=== PATIENT | female | born 1940 | race Caucasian/White ===

== ENCOUNTER → 2017-11-04 | Outpatient (CLI) | payer OTHER ==
[~2017-11-04] MED LIST: ALKA-SELTZER P1 EAC9 PO; ATIVAN0.5 MG PO; CALCIUM 500 +1 EAC5 PO; CAPOTEN; CARVEDILOL12.5 MG PO; CIPROFLOXACIN500 M1 PO; CLONAZEPAM 0.50.5 M1 PO; DESYREL; GABAPENTIN PO; HYDROCODON-ACE1 EAC5 PO; HYDROCODONE; KLOR-CON 1010 MEQ PO; MUCINEX D TABL1 EAC1 PO; NORVASC5 MG PO; OMEPRAZOLE40 MG PO; PHENERGAN 25 MG25 MG PO; PRILOSEC 20 MG20 MG PO; SERTRALINE HCL50 MG PO; SIMVASTATIN40 MG PO; TRAVATAN Z5 ML OP; TRAZODONE HCL50 MG PO; XALATAN2.5 ML OPHTHALMIC; ZESTORETIC 20-1 EAC3 PO; ZESTORETIC 20-1 EACH PO; ZOCOR40 MG PO; ZOLOFT50 MG PO
== END ==
LOC: M.ULTRA 11:55
DX: M25.562 Pain in left knee (principal); M79.89 Other specified soft tissue disorders

== ENCOUNTER → 2017-11-14 | Outpatient (CLI) | payer OTHER, SELFPAY | LOC: M.MRI 10:31 | DX: S83.412A Sprain of medial collateral ligament of left knee, initial encounter (principal); M25.462 Effusion, left knee; X58.XXXA Exposure to other specified factors, initial encounter; Y93.89 Activity, other specified; Y92.89 Other specified places as the place of occurrence of the external cause; Y99.8 Other external cause status ==

== ENCOUNTER → 2018-04-26 | Outpatient (CLI) | payer OTHER, SELFPAY | LOC: M.RAD 08:26 | DX: M85.89 Other specified disorders of bone density and structure, multiple sites (principal); I10 Essential (primary) hypertension; Z78.0 Asymptomatic menopausal state ==

== ENCOUNTER → 2019-07-17 | Outpatient (CLI) | payer OTHER ==
[~2019-07-17] MED LIST changes: +ALEVE220 M1 PO; +ALKA-SELTZER O1 EACH PO; +ASA81BEC PO; +CENTRUM SILVER1 EAC6 PO; +HAIR SKIN AND NAILS PO; +MAGNESIUM250 M1 PO; +TYLENOL PM EX-1 EACH PO; +VITAMIN D-3 PO; +ZINC PO; +calcium PO
== END ==
LOC: M.MRI 11:07
DX: M47.816 Spondylosis without myelopathy or radiculopathy, lumbar region (principal); M48.062 Spinal stenosis, lumbar region with neurogenic claudication; M53.85 Other specified dorsopathies, thoracolumbar region

== ENCOUNTER → 2019-07-31 | Outpatient (CLI) | payer OTHER ==
--- NOTE | 2019-08-13 13:25 | PAINCON ---
[address] [address] PAIN MANAGEMENT CONSULTATION Name: LUCRECIALELE Malaika Room: [facility]#: [id number] Admission: 07/31/19 Attend Phys: Krysta Lopez MD Discharge: Date of : 36 Report #: [id number] THIS REPORT FOR: //name// CC: Krysta Youngblood DO CHIEF COMPLAINT: Pain in the entire back, neck, hips, legs, shoulders, feet, knees. The patient has had a long history of chronic pain since dating back to 2015. Does note that about every 2-3 weeks, she becomes unsure of her gait. She has fallen. She does use a walker. She has not needed hospitalization as a result of her falls. HISTORY OF PRESENT ILLNESS: The patient is an 78-year-old female, who has fallen about a month ago. Since that time, she has had significant pain. Does have a history of rotoscoliosis. 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 The patient has had some problems with urinary tract infections and has been treated for them. She has had back surgery, This was in 1969. As a result of the surgery, a bone graft was obtained. She still has pain and discomfort in the area of the graft. ALLERGIES: No known drug allergies. CURRENT MEDICATIONS: Tylenol 500 mg, amlodipine 5 mg, aspirin 81 mg, calcium, Coreg 12.5 mg, Klonopin 0.5 mg t.i.d. p.r.n., Xalatan 0.005 eye drops, multivitamins, omega 3 fatty acids/fish oil, Prilosec 40 mg, Zoloft 50 mg, Zocor 40 mg, Ultram 50 mg, Desyrel 50 mg. PAST MEDICAL HISTORY: 1. Urinary tract infections. 2. Essential hypertension. 3. Chronic stage 3 kidney disease. The patient states she has function of one kidney. 4. Major depressive disorder with single episode, in partial remission. 5. Mixed hyperlipidemia. 6. Peripheral vascular disease. 7. Acquired absence of a kidney, lumbar stenosis with neurogenic claudication. 8. Body mass index, 30-30.9. 9. Cardiac murmur. 10. Neurogenic claudication. PAST SURGICAL HISTORY: 1. Back surgery in 1969. 2. Appendectomy. 3. Nephrectomy. 4. Right foot surgery with screws. 5. 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 REVIEW OF SYSTEMS: Weight changes, decreased appetite, headaches, eye disease, wears glasses. Glaucoma/cataracts. Chronic sinus/rhinitis. Sore throat, heart trouble, chest pain/angina, shortness of breath walking. GASTROINTESTINAL: Positive. GENITOURINARY: Frequent urination, burning, painful urination. ENDOCRINE: Excessive thirst. MUSCULOSKELETAL: Joint pain, joint stiffness, weakness of muscles and joints, back pain, difficulty walking. Lightheadedness, dizziness, depression, and insomnia. LABORATORY DATA: MRI of the lumbar spine dated 07/17/2019, L3-L4 laminectomies and bilateral facet hypertrophy. No significant central canal stenosis or neural foraminal narrowing at L4-L5. Bilateral facet hypertrophy. No significant central canal stenosis. L5-S1 bilateral facet hypertrophy. No significant central canal stenosis or neural foraminal narrowing. Impression, degenerative changes. Findings not significantly changed since prior study in 2014. PAIN CLINIC ASSESSMENT/PQRS: 1. Height 5.0. 2. Weight 145 pounds, BMI is 28.3. 3. Vital signs: Blood pressure 145/70, heart rate 66, respiratory rate 16, room air saturation 94%. 4. Temperature 98.1. 5. Pain intensity 10. 6. Fall risk. The patient has fallen in the last month with continued pain and discomfort in her hip. 7. Blood thinner. The patient is not on a blood thinning medication. 8. Hypertension. The patient is being treated for hypertension. 9. Opioids greater than 6 weeks. The patient is not on opioid medications, but using tramadol. 10. Risk assessment tool, low for opioid use. 11. Functional assessment tool. 12. Recreational drug use: The patient denies. 13. Tobacco: The patient does not smoke. 14. Alcohol: The patient denies frequent use of alcoholic beverages. PHYSICAL EXAMINATION: GENERAL: The patient is a well-developed white female. Appears her stated age. She is alert and oriented x 3. Her affect is appropriate. Speech is fluent. HEENT: Normocephalic, atraumatic. Extraocular eye muscles intact. HEART: Regular rate. EXTREMITIES: Upper extremity, the patient complains of pain in the neck as well as in her shoulders, left and right. LUNGS: Generally, [place] [address] PAIN MANAGEMENT CONSULTATION Name: LELE SINGER Room: [facility]#: [id number] Admission: 07/31/19 Attend Phys: Krysta Lopez MD Discharge: Date of : 36 Report #: [id number] ABDOMEN: Protuberant. Nontender. EXTREMITIES: Upper extremity muscle strength judged to be 4+/5 for the major muscle groups in the upper extremity. The patient with history of scoliosis, rotoscoliosis. Lower extremity, the patient complains of pain in the left anterior foot and calf. She is walking with a rolling walker. Uses her hands to go from a sitting to a standing position. IMPRESSION: 1. Hip, low back, left leg and foot pain after a fall. 2. History of lumbar back surgery. 3. Total hip arthroplasty, increased pain after a fall. RECOMMENDATION: The patient has pain and discomfort, which she describes in the L4-L5 dermatomal distribution down into her left leg and involving her foot. Possibility of an epidural steroid injection has been discussed. The patient will return to the Pain Clinic, at which time she may consider going forward with an epidural steroid injection. The patient is on Naprosyn. We have reminded her that given she has problems with her kidney, this medication probably should not be used on a regular basis. Possibility of a Medrol Dosepak oral is being considered as well. We would like to thank you for letting us participate in her care. We hope she continues to improve. <ELECTRONICALLY SIGNED> By: Krysta Lopez MD 08/13/19 [id number]. MD niecy Ordoñez
== END ==
LOC: M.PC 05:08
DX: M54.2 Cervicalgia (principal); M54.9 Dorsalgia, unspecified; I12.9 Hypertensive chronic kidney disease with stage 1 through stage 4 chronic kidney disease, or unspecified chronic kidney disease; N18.3 Chronic kidney disease, stage 3 (moderate); E78.5 Hyperlipidemia, unspecified; F32.9 Major depressive disorder, single episode, unspecified; I73.9 Peripheral vascular disease, unspecified

== ENCOUNTER → 2021-08-10 | Outpatient (CLI) | payer MEDICARE ==
--- NOTE | 2021-08-10 12:35 | 2DMMODE ---
[place] [address] 2 D/M-MODE ECHOCARDIOGRAM Name: LELE SINGER Room: [facility]#: [id number] Admission: 08/10/21 Attend Phys: Elizabeth Estrada Discharge: Date of : 36 Date of Service: 08/10/21 1234 Report #: [id number] THIS REPORT FOR: cc: Dandy Youngblood,Dandy Hill,Marvel Lea MD [facility] ~ APPROVED REPORT Study performed: 08/10/2021 11:19:06 EXAM: Comprehensive 2D, Doppler, and color-flow Echocardiogram Patient Location: Out-Patient BSA: 1.52 HR: 56 bpm BP: 120/70 mmHg Other Information Study Quality: Good Indications Hypertension/HDD 2D Dimensions IVSd: 10.71 (7-11mm) LVOT Diam: 19.51 (18-24mm) LVDd: 44.03 mm PWd: 9.47 (7-11mm) Ascending Ao: 29.02 (22-36mm) LVDs: 24.07 (25-40mm) Aortic Root: 26.84 mm Volumes Left Atrial Volume (Systole) LA ESV Index: 19.40 mL/m2 Aortic Valve AoV Peak Fred.: 1.63 m/s AO Peak Gr.: 10.65 mmHg LVOT Max P.30 mmHg AO Mean Gr.: 5.00 mmHg LVOT Mean P.33 mmHg LVOT Max V: 1.52 m/s AO V2 VTI: 34.95 cm LVOT Mean V: 0.94 m/s KAREN (VTI): 2.97 cm2 LVOT V1 VTI: 34.73 cm AI Pierce: 2.51 m/s2 AI PHT: 505.90 [place] [address] 2 D/M-MODE ECHOCARDIOGRAM Name: CHLOÉFAITHLELE Room: [facility]#: [id number] Admission: 08/10/21 Attend Phys: Elizabeth Estrada Discharge: Date of : 36 Date of Service: 08/10/21 1234 Report #: [id number] Mitral Valve E/A Ratio: 0.99 MV Decel. Time: 182.33 ms MV E Max Fred.: 1.01 m/s MV PHT: 52.88 ms MVA (PHT): 4.16 cm2 TDI E/Lateral E': 8.42 E/Medial E': 9.18 Medial E' Fred.: 0.11 m/s Lateral E' Fred.: 0.12 m/s Pulmonary Valve PV Peak Fred.: 1.10 m/s PV Peak Gr.: 4.80 mmHg Tricuspid Valve RAP Estimate: 5.00 mmHg TR Peak Gr.: 19.68 mmHg RVSP: 24.68 mmHg PA Pressure: 24.68 mmHg Left Ventricle The left ventricle is normal size. There is normal LV segmental wall motion. There is normal left ventricular wall thickness. Left ventricular systolic function is normal. The left ventricular ejection fraction is within the normal range. LVEF is 55-60%. Grade I - abnormal relaxation pattern. Right Ventricle The right ventricle is normal size. The right ventricular systolic function is normal. Atria The left atrium size is normal. The right atrium size is normal. Aortic Valve Mild aortic valve sclerosis. Mild aortic regurgitation. There is no aortic valvular stenosis. Mitral Valve The mitral valve is normal in structure. Mild mitral regurgitation. No evidence of mitral valve stenosis. Tricuspid Valve The tricuspid valve is normal in structure. Mild tricuspid [place] [address] 2 D/M-MODE ECHOCARDIOGRAM Name: LEEL SINGER Room: [facility]#: [id number] Admission: 08/10/21 Attend Phys: Elizabeth Estrada Discharge: Date of : 36 Date of Service: 08/10/21 1234 Report #: [id number] Pulmonic Valve Pulmonic valve is not well visualized. There is no pulmonic valvular regurgitation. Great Vessels The aortic root is normal in size. IVC is normal in size and collapses >50% with inspiration. Pericardium There is no pericardial effusion. <Conclusion> LVEF is 55-60%. Mild aortic valve sclerosis. Mild aortic regurgitation. Mild mitral regurgitation. <ELECTRONICALLY SIGNED> By: Marvel Negrete MD, FACC 08/10/21 1234 1234 1234 Marvel Negrete MD, FACC /INF
== END ==
LOC: M.CRD 10:00
DX: I08.3 Combined rheumatic disorders of mitral, aortic and tricuspid valves (principal); I10 Essential (primary) hypertension; E78.2 Mixed hyperlipidemia; R01.1 Cardiac murmur, unspecified

== ENCOUNTER 2021-09-24 20:15 | Emergency (ER) | payer MEDICARE ==
[~2021-09-24] VITALS: Ht 152.4 cm; Wt 56.7 kg
[2021-09-24] MEDS ORDERED: KLOR-CON M2020 MEQ PO (20:30)
[2021-09-24 21:56] VITALS: BP 114/62
== END 2021-09-24 21:57 | disposition home or self-care (01) ==
LOC: M.ERS 20:15
DX: S90.31XA Contusion of right foot, initial encounter (principal); I10 Essential (primary) hypertension; Z90.5 Acquired absence of kidney; Z79.899 Other long term (current) drug therapy; Z79.82 Long term (current) use of aspirin; Z91.048 Other nonmedicinal substance allergy status; W20.8XXA Other cause of strike by thrown, projected or falling object, initial encounter; Y93.89 Activity, other specified; Y92.89 Other specified places as the place of occurrence of the external cause; Y99.8 Other external cause status

== ENCOUNTER 2021-10-23 11:09 | Inpatient (IN) | payer MEDICARE ==
[~2021-10-23] VITALS: Ht 152.4 cm; Wt 59.8 kg
--- NOTE | ~2021-10-23 | CON ---
[facility] [address] [place] [address] CONSULTATION Name: LELE SINGER Room: [address] M.R.#: [id number] Admission: 10/23/21 Attend Phys: Elizabeth Montes De Oca Discharge: Date of : 38 Report #: [id number] THIS REPORT FOR: cc: Dandy Youngblood Steve T. DO Khosla, Parveen K. MD ~ DATE OF CONSULTATION: 10/24/2021 HISTORY OF PRESENT ILLNESS: This is an 80-year-old female patient who was evaluated by me for falls. The history is not clear in this patient. The daughter is there, but she has not seen any fall. I asked her why she falls down. She said she does not know. I asked her if she feels dizzy and she says sometimes she does and sometimes she does not. She is unable to get up herself after the fall and she needs help. When I asked her how long she stays weak, she does not know. When I asked her if she loses consciousness with it and she says she does not know. REVIEW OF SYSTEMS: Positive for abdominal pain in the patient in the past. She has injuries in the past, hypokalemia, TIA, urinary tract infection, encephalopathy. She does have some wbc's in the urine. She takes multiple medications, but none of them has been started recently. She is on clonazepam and she does not know why. I carried out 14-point review of systems. Apparently, she had some altered mental status when she came in, but has become better. She does have a kidney removed, history of hypertension, low back surgery, diverticulitis, broken foot, heart damage. This was a relevant 14-point review of systems. PAST MEDICAL HISTORY: Positive for question of TIA, but history is not very clear. SOCIAL HISTORY: She does not smoke or drink alcohol. PHYSICAL EXAMINATION: NEUROLOGIC: She is alert. She is responsive. She can follow simple commands. Her speech looks intact. Her memory is somewhat poor, but family says it is going on for some time. She moved all 4 extremities. She said she can feel on both sides. Reflexes are somewhat diminished in generalized fashion. Tone looks symmetrical. There is no meningeal sign. NECK: There is no carotid bruit. There is no thyroid mass. VITAL SIGNS: Blood pressure is 122/57, respirations 17, pulse is 63, temperature is 98. LABORATORY DATA: White count is 7.8. She did have a CT scan of the head, CT scan of the C-spine and MRI of the brain. MRI of the brain does not show any abnormality. The carotid Doppler showed antegrade [place] [address] CONSULTATION Name: LELE SINGER Malaika Room: [address] IN [facility]#: [id number] Admission: 10/23/21 Attend Phys: Elizabeth Montes De Oca Discharge: Date of : 38 Report #: [id number] the carotid, was mostly unremarkable. IMPRESSION: Very poor history in this patient. I have ordered an EEG to look for any neurological etiology for the patient's symptoms. We will get her evaluated by PT, OT. We will do some more blood workup. It will be difficult to establish the diagnosis with such poor history. I discussed that with the patient's daughter first and subsequently with the patient. We will talk to the hospital. I spent more than 50 minutes of time taking care of this patient today and majority was spent counseling and coordinating. By: 1537 denise Holman MD /nt
--- NOTE | ~2021-10-23 | EEG ---
[address] [address] EEG STUDY REPORT Name: LELE SINGER Room: [address] IN [facility]#: [id number] Admission: 10/23/21 Attend Phys: Elizabeth Montes De Oca Discharge: Date of : 36 Report #: [id number] THIS REPORT FOR: cc: Dandy Youngblood Steve T. DO Khosla, Parveen K. MD ~ DATE OF SERVICE: 10/24/2021 This patient is being evaluated for episodes of falling down, which are unexplained. EEG is being done to evaluate the possibility of seizure. EEG was done by placing the electrode by standard 10-20 system of electrode placement. Both referential and sequential montages were used for recording. Background activity in this patient's EEG is about 7-8 Hz and 30 microvolt. Photic stimulation is unremarkable. The patient went to sleep that is associated with bilateral slowing and vertex sharp waves. Throughout the record, no active epileptiform activity was noticed. IMPRESSION: This patient's electroencephalogram is intermixed with theta range slowing on both sides. That is a nonspecific finding which can occur with encephalopathy, effect of psychotropic medication, dementia, etc. Clinical correlation is recommended. By: 1411 [id number] Holman MD /nt
[~2021-10-23 11:09] MED LIST changes: +KLOR-CON M2020 MEQ PO
[2021-10-23 12:00] VITALS: BP 107/63
[2021-10-23 15:21] LABS: ABSOLUTE LYMPHOCYTES 1.2 thou/uL (0.8-5.3); ABSOLUTE MONOCYTES 0.5 thou/uL (0.0-1.2); ABSOLUTE NEUTROPHILS 5.9 thou/uL (1.6-8.1); BASOPHILS 0.6 %; EOSINOPHILS 0.6 %; HEMATOCRIT 42.1 % (37.0-47.0); HEMOGLOBIN 14.4 gm/dL (12.0-15.0); LYMPHOCYTES 15.8 %; MCH 31.9 pg (26.0-34.0); MCHC 34.3 g/dL (28.0-37.0); MPV 8.4 fl. (7.2-11.1); NUCLEATED RBCS 0 /100WBC; PLATELET COUNT* 146 thou/uL (150-400); RBC 4.52 mil/uL (4.20-5.00); WBC 7.8 thou/uL (4.0-11.0)
[2021-10-23 15:30] LABS: CALCIUM 9.4 mg/dL (8.5-10.1); POTASSIUM 3.6 mmol/L (3.5-5.1)
[2021-10-23 15:41] LABS: ALBUMIN 3.9 g/dL (3.4-5.0); TOTAL BILIRUBIN 0.7 mg/dL (<0.1-1.0); TOTAL PROTEIN 7.4 g/dL (6.4-8.2)
--- NOTE | 2021-10-23 16:39 | EKG ---
[place] [address] ELECTROCARDIOGRAM REPORT Name: TRACY SINGERLAUREANO Dai Room: [facility]#: [id number] Admission: 10/23/21 Attend Phys: Discharge: Date of : 36 Date of Service: 10/23/21 1517 Report #: [id number] THIS REPORT FOR: //name// [facility] ED Test Date: 2021-10-23 Test Time: 15:17:35 Pat Name: LELE SINGER Department: Room: Gender: Supervisor Grips: : 1940 Requested By: Portia Osborn Order Number: [id number] MD: Marvel Negrete Measurements Intervals [place] Rate: 66 P: NV: QRS: -28 QRSD: 107 T: -32 QT: 474 QTc: 497 Interpretive Statements sinus rhythm artifact noted Inferior infarct, old Lateral leads are also involved Compared to ECG 03/14/2016 11:05:00 no change Electronically Signed On 10-23-2021 16:39:24 [employer] by Marvel Negrete [email or web address] <ELECTRONICALLY SIGNED> By: Marvel Negrete MD, [facility] 10/23/21 1639 1517 1517 Marvel Negrete MD, [facility] /EPI
[2021-10-23 17:36] LABS: URINE BILIRUBIN NEGATIVE (Negative); URINE BLOOD NEGATIVE (Negative); URINE CLARITY CLOUDY; URINE COLOR YELLOW; URINE GLUCOSE-RANDOM NEGATIVE (Negative); URINE KETONES 1+ (Negative); URINE LEUKOCYTES-REFLEX 1+ (Negative); URINE NITRITE-REFLEX POSITIVE (Negative); URINE PROTEIN NEGATIVE (Negative); URINE UROBILINOGEN 0.2 E.U./dl (0.2-1.0)
[2021-10-23 17:42] LABS: SQUAMOUS NONE SEEN /LPF (0-3); URINE RBC None Seen /HPF (0-2)
[2021-10-23 17:43] LABS: BACTERIA-REFLEX >30 Many /HPF (None Seen); CASTS None Seen /LPF (None Seen); CRYSTALS None Seen /LPF (None Seen)
[2021-10-23 22:37] VITALS: BP 118/62
[2021-10-24] VITALS: BP 132/61
[2021-10-24 04:00] VITALS: BP 123/61
[2021-10-24 08:00] VITALS: BP 135/56
[2021-10-24 12:00] VITALS: BP 122/57
[2021-10-24 16:00] VITALS: BP 131/62
[2021-10-24 20:00] VITALS: BP 146/70
[2021-10-25] VITALS: BP 120/55
[2021-10-25 04:00] VITALS: BP 115/54
[2021-10-25 04:20] LABS: HEMATOCRIT 34.5 % (37.0-47.0); MCH 32.3 pg (26.0-34.0); MCHC 34.1 g/dL (28.0-37.0); MCV 94.8 fL (80.0-100.0); MPV 8.9 fl. (7.2-11.1); RBC 3.64 mil/uL (4.20-5.00); RDW-CV 12.9 % (10.5-14.5); WBC 5.7 thou/uL (4.0-11.0)
[2021-10-25 04:49] LABS: ALBUMIN 2.8 g/dL (3.4-5.0); ALKALINE PHOSPHATASE 99 U/L (46-116); ANION GAP 8 mmol/L (7-16); BUN 12 mg/dL (7-18); CALCIUM 8.3 mg/dL (8.5-10.1); CHLORIDE 112 mmol/L (98-107); CHOLESTEROL 114 mg/dL (<200); CO2 26 mmol/L (21-32); CREATININE 0.9 mg/dL (0.6-1.3); GLUCOSE 119 mg/dL (70-99); HDL CHOLESTEROL 32 mg/dL (>40); LDL CHOLESTEROL 67 mg/dL (<100); MAGNESIUM 1.6 mg/dL (1.8-2.4); POTASSIUM 3.9 mmol/L (3.5-5.1); SGOT 45 U/L (15-37); SGPT 31 U/L (30-65); SODIUM 146 mmol/L (136-145); TC:HDL 3.6 Ratio (Not establshd); TOTAL BILIRUBIN 0.3 mg/dL (<0.1-1.0); TOTAL PROTEIN 5.3 g/dL (6.4-8.2); TRIGLYCERIDE 79 mg/dL (<150); VLDL 16 mg/dL (<40)
[2021-10-25 04:51] LABS: SERUM ASSESSMENT CLEAR
[2021-10-25 06:05] LABS: HEMOGLOBIN 11.8 gm/dL (12.0-15.0)
[2021-10-25 07:07] LABS: GLYCOHEMOGLOBIN (HGB A1C) 5.1 % (4.8-5.6)
[2021-10-25 08:00] VITALS: BP 140/74
[2021-10-25 12:00] VITALS: BP 135/64
[2021-10-25 16:00] VITALS: BP 135/83
[2021-10-26] VITALS: BP 137/66
[2021-10-26 04:00] VITALS: BP 133/64
[2021-10-26 04:00] LABS: HEMATOCRIT 36.7 % (37.0-47.0); HEMOGLOBIN 12.5 gm/dL (12.0-15.0); MCH 31.9 pg (26.0-34.0); MCHC 34.1 g/dL (28.0-37.0); MCV 93.5 fL (80.0-100.0); MPV 8.5 fl. (7.2-11.1); RBC 3.92 mil/uL (4.20-5.00); RDW-CV 12.9 % (10.5-14.5)
[2021-10-26 04:31] LABS: CALCIUM 8.6 mg/dL (8.5-10.1); CREATININE 1.3 mg/dL (0.6-1.3); POTASSIUM 4.3 mmol/L (3.5-5.1)
[2021-10-26 09:23] VITALS: BP 133/71
[2021-10-26 12:30] VITALS: BP 149/68
[2021-10-26 17:01] VITALS: BP 149/79
[2021-10-26 20:39] VITALS: BP 118/53
[2021-10-27 00:10] VITALS: BP 117/54
[2021-10-27 04:00] VITALS: BP 109/56
[2021-10-27 08:21] VITALS: BP 116/62
[2021-10-27 12:29] VITALS: BP 117/58
[2021-10-27 16:31] VITALS: BP 137/72
[2021-10-27 20:49] VITALS: BP 116/62
[2021-10-28 04:00] VITALS: BP 135/59
[2021-10-28 09:00] VITALS: BP 110/60
[2021-10-28 13:22] VITALS: BP 133/72
[2021-10-28] MEDS ORDERED: MACROBID 100 M100 M2 PO (16:45)
[2021-10-28 17:07] VITALS: BP 133/72
[2021-10-28 17:22] VITALS: BP 133/72
== END 2021-10-28 18:24 | disposition home health service (06) | DRG 689 ==
LOC: M.ERS 11:09 → M.2W 18:19 → M.TBA-ER 18:19 → M.2W 22:02
PROVIDERS: Internal Medicine; Physician Assistant; ADMIT Internal Medicine; ATTEND Internal Medicine
DX: N39.0 Urinary tract infection, site not specified (principal); G92.9 Unspecified toxic encephalopathy; Z20.822 Contact with and (suspected) exposure to COVID-19; I10 Essential (primary) hypertension; B96.89 Other specified bacterial agents as the cause of diseases classified elsewhere; M54.9 Dorsalgia, unspecified; G89.29 Other chronic pain; Z88.8 Allergy status to other drugs, medicaments and biological substances; D69.6 Thrombocytopenia, unspecified; Z90.5 Acquired absence of kidney; Z87.891 Personal history of nicotine dependence